=== PATIENT | male | born 1995 | race Caucasian/White ===

== ENCOUNTER 2017-06-29 19:48 | Emergency (ER) | payer BC ==
[~2017-06-29] VITALS: Ht 182.9 cm; Wt 78.0 kg
[2017-06-29 19:51] VITALS: TEMP 36.8; Ht 182.9 cm; Wt 78.0 kg
[2017-06-29] MEDS ORDERED: ACETAMINOPHEN 500 MG TAB PO STA (19:58)
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
[2017-06-29] MEDS ORDERED: CLIN300C2 PO (20:35)
[2017-06-29 20:53] VITALS: BP 154/72; PULSE 76; O2SAT 98
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
== END 2017-06-29 20:54 | disposition home or self-care (01) ==
LOC: C.EDB 19:50 → C.EDD 20:54
DX: S92.511A Displaced fracture of proximal phalanx of right lesser toe(s), initial encounter for closed fracture (principal); M25.571 Pain in right ankle and joints of right foot; V19.3XXA Pedal cyclist (driver) (passenger) injured in unspecified nontraffic accident, initial encounter; Y92.833 Campsite as the place of occurrence of the external cause